=== PATIENT | male | born 1940 | race Caucasian/White ===

== ENCOUNTER 2022-01-02 17:43 | Emergency (ER) | payer OTHER, MEDICARE ==
[~2022-01-02 17:43] MED LIST: ACETAMINOPHEN500 M1 PO; AMITRIPTYLINE 775 MG PO; APLISOL5 TUB UNIT XX; ASPIRIN EC81 MG PO; ASPIRIN81 MG PO; ATENOLOL25 MG PO; BUSPIRONE HCL7.5 MG PO; DIVALPROEX SOD125 M1 PO; ELAVIL50 MG PO; HCTZ25 MG PO; IMODIUM2 MG PO; LISINOPRIL-HCT1 EACH PO; LORAZEPAM 0.5M0.5 MG PO; METHIMAZOLE5 MG PO; MIRTAZAPINE7.5 MG PO; ONDANSETRON ODT4 MG PO; PAROXETINE 10MG10 MG PO; TAPAZOLE5 MG PO
[2022-01-03 06:37] LABS: ACETAMINOPHEN (TYLENOL) < 2.0 ug/mL (10.0-30.0)
== END 2022-01-03 17:10 | disposition home or self-care (01) ==
LOC: FER 17:43
PROVIDERS: Internal Medicine
DX: S00.03XA Contusion of scalp, initial encounter (principal); F03.90 Unspecified dementia, unspecified severity, without behavioral disturbance, psychotic disturbance, mood disturbance, and anxiety; J44.9 Chronic obstructive pulmonary disease, unspecified; F17.200 Nicotine dependence, unspecified, uncomplicated; Z20.822 Contact with and (suspected) exposure to COVID-19; Z79.899 Other long term (current) drug therapy; W01.0XXA Fall on same level from slipping, tripping and stumbling without subsequent striking against object, initial encounter; Y92.129 Unspecified place in nursing home as the place of occurrence of the external cause
CPT/HCPCS: 36415; 70450; 71045; 73522; 96372; G0480; J1630; J2060; U0002